=== PATIENT | female | born 1985 | race Caucasian/White ===

== ENCOUNTER 2018-12-22 07:15 | Inpatient (IN) | payer BC ==
[2018-12-22 08:12] VITALS: BMI 35.3
[2018-12-22] MEDS: CITRIC ACID/SODIUM CITRATE 30 ML UNIT-DOSE CUP PO ONE ×2 (08:30→14:00)
[2018-12-22] MEDS ORDERED: OXYTOCIN 20 UNITS in 0.9% NS 20 UNIT/1,000 ML INFUS.BAG IV ONE ×2 (09:03→09:13)
--- NOTE | 2018-12-22 09:14 | HP ---
Past Medical History - Primary Care Physician PCP:: Frankie Yu - Admission Chief Complaint: 33yo P2 with at EGA 39w 1d with prior C/S x 2 admitted for repeat C/S. 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: No: Alzheimer's, CVA, Dementia, Migraine, Multiple Sclerosis, Peripheral Neuropathy, Parkinson's, Seizure, Syncope, TIA, Vertigo, Other Cardiovascular: No: AFIB, Aneurysm, Aortic Insufficiency, Aortic Stenosis, CAD, CHF, Deep Vein Thrombosis, HTN, Hyperlipdemia, IL, Mitral Insufficiency, Mitral Stenosis, Murmur, Pulmonary Hypertension, Other Pulmonary: No: Asthma, Bronchitis, Cancer, COPD, O2 Dependent, Pneumonia, Previously Intubated, Pulmonary Embolus, Pulmonary Fibrosis, Sleep Apnea, Other Gastrointestinal: No: Ascites, Cancer, Constipation, Crohn's Disease, Diverticulitis, Diverticulosis, Esophageal Varices, Gastritis, GERD, GI Bleed, Hemorrhoids, Hiatal Hernia, Inflamatory Bowel Disease, Irritable Bowel Disease, Pancreatitis, Peptic Ulcer Disease, Ulcerative Colitis, Other Hepatobiliary: No: Cirrhosis, Cholelithiasis, Cholecystitis, Choledocholithiasis , Hepatitis A, Hepatitis B, Hepatitis C, Other Renal/: No: Renal Failure, Renal Inusuff, BPH, Cancer, Hematuria, Hemodialysis , Neurogenic Bladder, Renal Calculi, UTI, Other Reproductive: No: Ectopic , Endometriosis, Fibroids, PID, Polycystic Ovary Syndrome, Postmenopausal, Other ...: 4 ...Para: 2 (c/s x2) ...Term: 2 ...: 0 ...Spon : 1 ...Induced : 0 ...Multiple Gestation: 0 ...LMP: 03/18/18 ... Weeks Gestation by Dates: 39.1 ...EDC by Sono: 12/23/18 Heme/Onc: No: Anemia, B12 Deficiency, Bleeding Disorder, Cancer, Current Chemotherapy, Current Radiation Therapy, Hemochromatosis, Hypercoaguable State, Myeloproliferative Synd, Sickle Cell Disease, Sickle Cell Trait, Thrombocytopenia, Other Infectious Disease: No: AIDS, C-Diff, Herpes Zoster, HIV, MRSA, STD's, Tuberculosis, VREF, Other Psych: No: Addictions, Anxiety, Bipolar, Depression, Panic, Psychosis, Schizophrenia, Other Musculoskeletal: No: Bursitis, Chronic low back pain, Hemiparesis, Hemiplegia, Osteoarthritis, Paraplegia, Other Rheumatology: No: Fibromyalgia, Gout, Lupus, Rheumatoid Arthritis, Sarcoidosis, Vasculitis, Other ENT: No: Allergic Rhinitis, Sinusitis, Other Endocrine: Yes: Hyperthyroidism Dermatology: No: Basal Cell, Cellulitis, Eczema, Melanoma, Psoriasis, Squamous Cell, Other - Past Surgical History Past Surgical History: Yes: Hx Myomectomy: No Hx Transabdominal Cerclage: No - Smoking History Smoking history: Unknown if ever smoked Have you smoked in the past 12 months: No - Alcohol/Substance Use Hx Alcohol Use: No History of Substance Use: reports: None - Social History Usual Living Arrangement: Yes: With Spouse, With Child ADL: Independent History of Recent Travel: No Home Medications - Allergies Allergies/Adverse Reactions: Allergies Allergy/AdvReac Type Severity Reaction Status Date / Time No Known Drug Allergies Allergy Verified 03/05/14 09:19 - Home Medications Home Medications: Ambulatory Orders Pnv with Ca,No.71/Iron/FA [ Vitamin Tablet] 1 each PO DAILY 07/20/13 Acetaminophen [Tylenol .Regular Strength -] 650 mg PO Q4H PRN #0 tablet Ibuprofen [Motrin -] 600 mg PO Q4H PRN #0 tablet 03/08/14 Sennosides/Docusate Sodium [Pericolace -] 2 each PO HS #0 tablet 03/08/14 Docusate Sodium [Colace -] 100 mg PO BID PRN #14 capsule 05/05/16 Ibuprofen [Motrin -] 600 mg PO QID #60 tablet 05/05/16 Oxycodone HCl/Acetaminophen [Percocet 5-325 mg Tablet -] 1 - 2 tab PO Q6H #30 tab MDD 6 05/05/16 Family Disease History - Family Disease History Family Disease History: Diabetes: Father Review of Systems - Review of Systems Constitutional: reports: No Symptoms Eyes: reports: No Symptoms HENT: reports: No Symptoms Neck: reports: No Symptoms Cardiovascular: reports: No Symptoms Respiratory: reports: No Symptoms Gastrointestinal: reports: No Symptoms Genitourinary: reports: No Symptoms Breasts: reports: No Symptoms Reported Musculoskeletal: reports: No Symptoms Integumentary: reports: No Symptoms Neurological: reports: No Symptoms Endocrine: reports: No Symptoms Hematology/Lymphatic: reports: No Symptoms Psychiatric: reports: No Symptoms Pain Intensity: 0 Physical Exam - Maternity Vital Signs: Vital Signs Temperature 97.7 F 12/22/18 07:15 Pulse Rate 87 12/22/18 07:15 Respiratory Rate 20 12/22/18 07:15 Blood Pressure 119/75 12/22/18 07:15 O2 Sat by Pulse Oximetry (%) Constitutional: Yes: Well Nourished, No Distress, Calm Eyes: Yes: WNL, Conjunctiva Clear HENT: Yes: WNL, Atraumatic, Normocephalic Neck: Yes: WNL, Supple, Trachea Midline Cardiovascular: Yes: WNL, Regular Rate and Rhythm Lungs: Clear to auscultation, Normal air movement Breast(s): Yes: WNL - Abdominal Exam/OB Fundal Height: 39 Number of Fetuses: Single Presentation: Vertex Contractions: No Monitor Mode: External Heart Rate (range): 125 Heart Rate Location: Midline Category: I Accelerations: Uniform Decelerations: None - Vaginal Exam/OB Vaginal Bleediing: No Speculum Exam: No Dilatation (cm): 0 Effacement (%): 0 Amniotic Membrane Status: Intact Presentation: Vertex/Position Station: -4 - Physical Exam Musculoskeletal: Yes: WNL Extremities: Yes: WNL Edema: No Integumentary: Yes: WNL Deep Tendon Reflex Grade: Normal +2 ...Motor Strength: WNL Psychiatric: Yes: WNL, Alert, Oriented Hemorrhage Risk Assessment - Risk Factors Medium Risk Factors: Yes: None High Risk Factors: Yes: None Risk Score: 1 Risk Level: Medium Risk Imaging - Results Ultrasound: Report Reviewed Assessment/Plan 33yo P2 with at EGA 39w 1d with prior C/S x 2 admitted for repeat C/ S. We discussed the risks and benefits of C/S at length, including but not limited to scarring, pain, bleeding, infection, injury to underlying organs and structures, need for additional surgery to repair/treat any problems or complications, complications/injuries, etc. The pt verbalized her understanding and requested to proceed with surgery. The pt is aware that all surgeries have risks and no guarantees can be provided.
[2018-12-22] MEDS ORDERED: ELECTROLYTE-148 SOLN 1,000 ML IV SCH (09:15)
[2018-12-22] MEDS ORDERED: morphine SULFATE/Preservative Free 0.5 MG/ML (1cc Syringe) ONE (09:15)
[2018-12-22] MEDS ORDERED: ceFAZolin SODIUM 1 GM VIAL ONE (09:34)
[2018-12-22] MEDS ORDERED: OXYTOCIN 10 UNITS/ML VIAL ONE (09:54)
[2018-12-22] MEDS ORDERED: BENZOCAINE 28 GM HEMORRHOIDAL OINTMENT TP PRN (10:41)
[2018-12-22] MEDS ORDERED: BENZOCAINE 20% 57 GM BOTTLE TP PRN (10:41)
[2018-12-22] MEDS ORDERED: SENNOSIDES/DOCUSATE COMBO (SENNA PLUS) TABLET (UD) PO PRN (10:41)
[2018-12-22] MEDS ORDERED: oxyCODONE HCL 5 MG TABLET PO PRN (10:41)
[2018-12-22] MEDS ORDERED: WITCH HAZEL 50% (TUCKS) 40 PAD/JAR PAD TP PRN (10:41)
[2018-12-22] MEDS ORDERED: METHYLERGONOVINE MALEATE 0.2 MG/1 ML AMP IM PRN ×2 (10:41→11:19)
[2018-12-22] MEDS ORDERED: OXYTOCIN 20 UNITS in 0.9% NS 20 UNIT/1,000 ML INFUS.BAG IV SCH (10:45)
[2018-12-22] MEDS ORDERED: SIMETHICONE 80 MG TAB.CHEW (FP) PO PRN (11:19)
[2018-12-22] MEDS ORDERED: IBUPROFEN 600 MG TABLET (FP) PO PRN (11:19)
--- NOTE | 2018-12-22 11:42 | OP ---
Operative Note - Note: Operative Date: 12/22/18 Pre-Operative Diagnosis: at EGA 39w1d, prior C/S x 2 Operation: Repeat LT C/S Findings: Live baby girl in vtx presentation, no meconium in amniotic fluid, 9/9, normal uterus/tubes/ovaries Post-Operative Diagnosis: Same as Pre-op Surgeon: Frankie Yu Peach Grower: Angie Benavidez Anesthesiologist/AUTOMATIC PAD MAKING MACHINE OPERATOR: Marion Nash Anesthesia: Spinal Specimens Removed: Placenta Estimated Blood Loss (mls): 600 Drains & Tubes with Location: Ovalle cath Drains, Volume Out (mls): 200 Blood Volume Replaced (mls): 0 Fluid Volume Replaced (mls): 1,000 Operative Report Dictated: Yes
--- NOTE | 2018-12-22 11:49 | PN ---
Delivery - Delivery Section: Repeat, Low Flap Transverse Type of Anesthesia: Spinal Episiotomy/Laceration: None EBL (cc): 600 Delivery, Single - Stages of Labor Date of Delivery: 12/22/18 Time of Delivery: 10:05 Date Placenta Delivered: 12/22/18 Time Placenta Delivered: 10:07 Placenta: Yes: Manual Removal, Normal Configuration - Condition of Laundry Equipment Operator/Media Job Titles Present: Yes Name: Pearl Mccray Infant Gender: Female Weight: 4.167 kg Position: Right, OT Total Hours ROM (Hrs/Mins): 7 MINS - 1 Minute Total Score: 9 5 Minutes Total Score: 9 - [place] Feeding Plan Initial Plan: Elected not to breastfeed exclusively throughout hospitalization
[2018-12-22] MEDS ORDERED: ONDANSETRON 4 MG/2 ML VIAL IVPUSH PRN (12:28)
[2018-12-22] MEDS: IBUPROFEN 800 MG/8 ML IJ IVPB PRN ×2 (12:56→23:23)
[2018-12-22] MEDS ORDERED: TUBERCULIN PPD 5 TU/0.1ML SYRINGE (IN PATIENT USE ONLY) ID ONE (14:00)
[2018-12-22] MEDS: ACETAMINOPHEN 325 MG TABLET (FP) PO PRN (18:25)
--- NOTE | 2018-12-22 21:15 | OP ---
DATE OF OPERATION: 12/22/2018 PREOPERATIVE DIAGNOSIS: at estimated gestational age of 39 weeks and 1 day, previous section x2. POSTOPERATIVE DIAGNOSIS: at estimated gestational age of 39 weeks and 1 day, previous section x2, delivered. PROCEDURE: Repeat low transverse section via Pfannenstiel skin incision. SURGEON: Frankie Yu MD POLYMER CHEMIST: Angie Benavdiez MD ANESTHESIOLOGIST: Marion Nash DO ANESTHESIA: Spinal. COMPLICATIONS: None. ESTIMATED BLOOD LOSS: 600 mL. INTRAVENOUS FLUIDS: 1000 mL. URINE OUTPUT: Clear urine 200 mL at the end of the procedure. PATHOLOGY: Placenta. FINDINGS: Live baby girl in vertex presentation. No meconium in amniotic fluid. Apgars 9 and 9. Normal uterus, fallopian tubes, and ovaries. PROCEDURE DESCRIPTION: Patient was met preoperatively. Risks, benefits, and alternatives of surgery were discussed in details. All questions were answered. The consent form was reviewed and signed. The patient verbalized her understanding and requested to proceed with surgery. The patient was then brought to the OR with the IV running. She was placed on the surgical table in the sitting position. The spinal anesthesia was achieved without difficulty. The patient was then placed in a supine position with a leftward tilt. A Ovalle catheter was inserted and left to drain to gravity. The patient was then prepped and draped in the usual sterile fashion. A timeout procedure was conducted as per standard protocol. The surgeons then proceeded with the operation. A Pfannenstiel skin incision was made with a knife along the prior scar. The incision was taken down to the level of fascia. The fascia was incised in the midline, and the incision was extended bilaterally using Galo scissors. The fascia was dissected away from the rectus muscles superiorly and inferiorly using sharp dissection. The rectus muscles were in the midline. The peritoneum was identified and entered sharply. The peritoneal incision was extended superiorly and inferiorly with Metzenbaum scissors. The bladder peritoneum was incised transversely over the lower uterine segment. The incision was extended bilaterally using Metzenbaum scissors. The bladder was then dissected away from the lower uterine segment using sharp dissection. The bladder was reflected downwards using Belfour retractor. The uterus was incised transversely in the lower uterine segment. The incision was extended bilaterally using bandage scissors. The baby was delivered from vertex presentation without complications. A vacuum assistance was required due to the baby's unengaged head. The baby delivered without complications. The baby was crying spontaneously. The umbilical cord was clamped and cut. The baby was handed to the awaiting informal waiter/waitress. The placenta was then delivered manually and without complications. The uterus was cleared of all clots and debris. The uterine incision was repaired using a 0 Biosyn suture with a running locking stitch. Good hemostasis was noted. The uterine incision was then imbricated using a 0 Biosyn suture with good hemostasis and approximation. The bladder peritoneum was then closed using a 0 Biosyn suture with good approximation and hemostasis. The operative site was irrigated using copious amounts of normal saline. Once the saline was aspirated, good hemostasis was noted. The abdominal peritoneum was closed using a 2-0 chromic suture with a running stitch. The rectus muscles were approximated using several interrupted 2-0 chromic sutures. The fascia was closed with a 0 Vicryl suture. Good hemostasis and approximation were confirmed. The subcutaneous adipose tissues and Abner fascia were also approximated using several interrupted 0 Vicryl sutures. The skin was closed using a 3-0 Vicryl stitch with a subcutaneous closure. The patient tolerated the procedure well. Sponge, lap, needle, and instrument counts were correct. The patient was transferred to recovery room in stable condition and awake. [id number]
[2018-12-22] MEDS: FERROUS SO4 325 MG TABLET (FP) PO SCH (22:55)
[2018-12-23] MEDS: IBUPROFEN 800 MG/8 ML IJ IVPB PRN (04:36)
[2018-12-23 07:16] LABS: BASO % 0.4 % (0-2.0); EOS % 1.7 % (0-4.5); HEMATOCRIT 33.3 % (32.4-45.2); HEMOGLOBIN 11.2 GM/dL (10.7-15.3); LYMPH % 13.9 % (8-40); MCH 28.8 pg (25.7-33.7); MCHC 33.7 g/dl (32.0-36.0); MEAN CELL VOLUME 85.5 fl (80-96); MEAN PLT VOLUME 8.2 fl (7.5-11.1); MONO % 9.6 % (3.8-10.2); NEUT % 74.4 % (42.8-82.8); PLATELET COUNT 183 K/MM3 (134-434); RBC 3.89 M/mm3 (3.60-5.2); RDW 14.2 % (11.6-15.6)
--- NOTE | 2018-12-23 08:01 | PN ---
Post Progress Note - Subjective Subjective: Patient without acute complaints. Reports tolerating oral intake without nausea or vomiting. Ambulating without dizziness. Denies fevers or chills. Pain well controlled Ovalle in place, no voiding yet. No flatus yet. Post Day: 1 Type of Delivery: Repeat C/S Vital Signs: Vital Signs Temperature 98.1 F 12/23/18 04:33 Pulse Rate 56 L 12/23/18 04:33 Respiratory Rate 20 12/23/18 06:00 Blood Pressure 108/55 L 12/23/18 04:33 O2 Sat by Pulse Oximetry (%) 100 12/22/18 11:50 Breast Exam: Yes: Soft Uterus: Yes: Fundus Firm, Fundus below umbilicus Incision: Yes: Dressing dry and intact Abdomen/GI: Yes: Abdomen soft, Tender (mild incisional), Tolerating PO. No: Abdominal Distention Lochia: Yes: Serosa Lochia, amount: Small Extremities: Yes: Calves non-tender, Edema (trace) Activity: Ambulating Assessment/Plan 33 yo POD # 1 s/p R CD, afebrile, vital signs stable, doing well 1. Continue routine postoperative care. 2. AM CBC without signs of anemia 3. Rh positive status, no rhogam indicated. 4. Encourage ambulation and incentive spirometer use 5. Continue oral pain medication 6. Anticipate discharge home postoperative day #3 or #4
[2018-12-23] MEDS: ACETAMINOPHEN 325 MG TABLET (FP) PO PRN ×2 (08:52→12:50)
[2018-12-23] MEDS: oxyCODONE HCL 5 MG TABLET PO PRN ×4 (08:53→21:18)
[2018-12-23] MEDS: SIMETHICONE 80 MG TAB.CHEW (FP) PO PRN ×3 (08:54→16:54)
--- NOTE | 2018-12-23 09:40 | PN ---
Progress Note (short form) - Note Progress Note: POD s/p c/s with spinal duramorph. Itching controlled with benadryl, pain minimal. No anesthetic issues
[2018-12-23] MEDS: FERROUS SO4 325 MG TABLET (FP) PO SCH ×2 (10:00→21:17)
[2018-12-23] MEDS: PRENATAL VITAMINS W/ FOLIC ACID TABLET (FP) PO SCH (10:00)
[2018-12-23] MEDS ORDERED: DIPHTH,PERTUSS(ACELL),TET 0.5 ML DISP.SYRIN IM ONE (10:00)
[2018-12-23] MEDS ORDERED: BISACODYL 10 MG SUPP.RECT RC PRN ×2 (10:41→11:20)
[2018-12-23] MEDS: ENOXAPARIN NA (PORCINE) 40 MG/0.4 ML DISP.SYRIN SQ SCH (10:58)
[2018-12-23] MEDS: IBUPROFEN 600 MG TABLET (FP) PO PRN ×2 (16:54→21:19)
[2018-12-24] MEDS: SIMETHICONE 80 MG TAB.CHEW (FP) PO PRN ×5 (03:02→20:37)
[2018-12-24] MEDS: IBUPROFEN 600 MG TABLET (FP) PO PRN ×5 (03:02→20:38)
[2018-12-24] MEDS: oxyCODONE HCL 5 MG TABLET PO PRN ×5 (03:02→20:40)
[2018-12-24] MEDS: FERROUS SO4 325 MG TABLET (FP) PO SCH ×2 (10:53→22:54)
[2018-12-24] MEDS: PRENATAL VITAMINS W/ FOLIC ACID TABLET (FP) PO SCH (10:54)
[2018-12-24] MEDS: ENOXAPARIN NA (PORCINE) 40 MG/0.4 ML DISP.SYRIN SQ SCH (10:56)
--- NOTE | 2018-12-24 17:12 | PN ---
Post Progress Note - Subjective Subjective: Patient without acute complaints. Reports tolerating oral intake without nausea or vomiting. Ambulating without dizziness. Denies fevers or chills. Pain well controlled with oral pain medication. Pumping without issue, baby not latching yet. Passing flatus. Post Day: 2 Type of Delivery: Repeat C/S Vital Signs: Vital Signs Temperature 97.6 F 12/24/18 10:00 Pulse Rate 72 12/24/18 10:00 Respiratory Rate 20 12/24/18 10:00 Blood Pressure 124/67 12/24/18 10:00 O2 Sat by Pulse Oximetry (%) 100 12/24/18 09:00 Breast Exam: Yes: Soft Uterus: Yes: Fundus Firm, Fundus below umbilicus, Non-tender Incision: Yes: Sutures intact Abdomen/GI: Yes: Abdomen soft, Passing flatus, Tolerating PO Lochia: Yes: Rubra Lochia, amount: Small Extremities: Yes: Calves non-tender Perineum: Yes: Intact Activity: Ambulating - Labs Labs: CBC WBC 8.0 K/mm3 (4.0-10.0) 12/23/18 06:53 RBC 3.89 M/mm3 (3.60-5.2) 12/23/18 06:53 Hgb 11.2 GM/dL (10.7-15.3) 12/23/18 06:53 Hct 33.3 % (32.4-45.2) 12/23/18 06:53 MCV 85.5 fl (80-96) 12/23/18 06:53 MCH 28.8 pg (25.7-33.7) 12/23/18 06:53 MCHC 33.7 g/dl (32.0-36.0) 12/23/18 06:53 RDW 14.2 % (11.6-15.6) 12/23/18 06:53 Plt Count 183 K/MM3 (134-434) D 12/23/18 06:53 MPV 8.2 fl (7.5-11.1) 12/23/18 06:53 Absolute Neuts (auto) 5.9 K/mm3 (1.5-8.0) 12/23/18 06:53 Neutrophils % 74.4 % (42.8-82.8) 12/23/18 06:53 Lymphocytes % 13.9 % (8-40) D 12/23/18 06:53 Monocytes % 9.6 % (3.8-10.2) 12/23/18 06:53 Eosinophils % 1.7 % (0-4.5) 12/23/18 06:53 Basophils % 0.4 % (0-2.0) 12/23/18 06:53 Nucleated RBC % 0 % (0-0) 12/23/18 06:53 Assessment/Plan 33yo P3 s/p repeat LT C/S, doing well stable, afebrile. The pt is asymptomatic for s/sxs of anemia. care instructions reviewed. Continue routine postop care. Ambulation encouraged.
--- NOTE | 2018-12-24 17:32 | DS ---
Physical Exam-ER MANAGER Vital Signs: Vital Signs Temperature 97.6 F 12/24/18 10:00 Pulse Rate 72 12/24/18 10:00 Respiratory Rate 20 12/24/18 10:00 Blood Pressure 124/67 12/24/18 10:00 O2 Sat by Pulse Oximetry (%) 100 12/24/18 09:00 Constitutional: Yes: Well Nourished, No Distress, Calm Eyes: Yes: WNL, Conjunctiva Clear HENT: Yes: WNL, Atraumatic, Normocephalic Neck: Yes: WNL, Supple, Trachea Midline Cardiovascular: Yes: WNL, Regular Rate and Rhythm Respiratory: Yes: WNL, Regular, CTA Bilaterally Gastrointestinal: Yes: WNL, Normal Bowel Sounds, Soft ...Rectal Exam: Yes: Deferred Renal/: Yes: WNL ....Post : Yes: Uterus firm, Uterus non-tender Breast(s): Yes: WNL Musculoskeletal: Yes: WNL Extremities: Yes: WNL Edema: No Integumentary: Yes: WNL Wound/Incision: Yes: Clean/Dry, Well Approximated, Sutures Intact, Steri Strips , Open to air Neurological: Yes: WNL, Alert, Oriented ...Motor Strength: WNL Psychiatric: Yes: WNL, Alert, Oriented Labs: CBC, BMP 12/23/18 06:53 Delivery - Delivery Section: Repeat, Low Flap Transverse Type of Anesthesia: Spinal Episiotomy/Laceration: None EBL (cc): 600 Delivery, Single - Stages of Labor Date of Delivery: 12/22/18 Time of Delivery: 10:05 Time Placenta Delivered: 10:07 Placenta: Yes: Manual Removal, Normal Configuration - Condition of Slots Manager/Acquisition Lead Present: Yes Name: Pearl Mccray Infant Gender: Female Weight: 4.167 kg Position: Right, OT Total Hours ROM (Hrs/Mins): 7 MINS - 1 Minute Total Score: 9 5 Minutes Total Score: 9 - Feeding Plan Initial Plan: Elected not to breastfeed exclusively throughout hospitalization Discharge Summary Reason For Visit: SCHEDULED C SECTION at EGA 39wk, prior C/S Procedures: Principal: Repeat LT C/S Hospital Course: Normal recovery Condition: Good - Instructions Diet, Activity, Other Instructions: Physical activity Resume your normal everyday activity as tolerated no heavy lifting or exercise until seen by your surgeon. You may walk unlimited missy of and climb stairs. You may resume driving the car when you feel safe and comfortable behind the wheel. No sexual activity as instructed. Wound care If you have a bandage, leave it on, and keep dry for 48-72 hours. After that time discard the outer bandage. If they are tapes on the skin under the out of bandage leave them in place. They will peel off in the next 7 to 10 days. Do Not Peel them off. You may shower the day after surgery. If there are tapes present on the skin, you may shower over them. Diet There are no dietary restrictions. Eat healthy, high-fiber foods. Drink 6 to 8 glasses of liquid each day. This will assist in keeping your bowels are regular. Pain management You may take Tylenol or acetaminophen or Ibuprofen (for example, Motrin, Advil etc.) from my pain prescription medication is ordered should be taken as prescribed for moderate to severe pain. Call MD for any of the following: Severe pain not relieved by medication Fever of 101 or higher Excessive bleeding or drainage on dressing Inability to urinate Referrals: Frankie Yu MD [Staff Physician] - Disposition: HOME - Home Medications Comprehensive Discharge Medication List: Ambulatory Orders Pnv with Ca,No.71/Iron/FA [ Vitamin Tablet] 1 each PO DAILY 07/20/13 Acetaminophen [Tylenol .Regular Strength -] 650 mg PO Q4H PRN #0 tablet Ibuprofen [Motrin -] 600 mg PO Q4H PRN #0 tablet 03/08/14 Sennosides/Docusate Sodium [Pericolace -] 2 each PO HS #0 tablet 03/08/14 Docusate Sodium [Colace -] 100 mg PO BID PRN #14 capsule 05/05/16 Ibuprofen [Motrin -] 600 mg PO QID #60 tablet 05/05/16 Oxycodone HCl/Acetaminophen [Percocet 5-325 mg Tablet -] 1 - 2 tab PO Q6H #30 tab MDD 6 05/05/16
[2018-12-25] MEDS: oxyCODONE HCL 5 MG TABLET PO PRN ×2 (02:34→06:49)
[2018-12-25] MEDS: SIMETHICONE 80 MG TAB.CHEW (FP) PO PRN ×3 (02:34→11:58)
[2018-12-25] MEDS: IBUPROFEN 600 MG TABLET (FP) PO PRN ×3 (02:35→11:57)
[2018-12-25 06:02] VITALS: PULSE 60
[2018-12-25 07:26] LABS: BASO % 0.7 % (0-2.0); EOS % 4.6 % (0-4.5); HEMATOCRIT 31.5 % (32.4-45.2); HEMOGLOBIN 10.1 GM/dL (10.7-15.3); LYMPH % 31.7 % (8-40); MCH 27.4 pg (25.7-33.7); MEAN CELL VOLUME 85.8 fl (80-96); MEAN PLT VOLUME 8.2 fl (7.5-11.1); MONO % 9.1 % (3.8-10.2); NEUT % 53.9 % (42.8-82.8); PLATELET COUNT 241 K/MM3 (134-434); RBC 3.67 M/mm3 (3.60-5.2); RDW 14.3 % (11.6-15.6)
--- NOTE | 2018-12-25 08:02 | PN ---
Post Progress Note - Subjective Subjective: Patient reports left lower extremity swelling and pain. Worse when walking and flexing of foot. Reports tolerating oral intake without nausea or vomiting. Ambulating without dizziness. Denies fevers or chills. Pain well controlled with oral pain medication. Passing flatus. Post Day: 3 Type of Delivery: Repeat C/S Vital Signs: Vital Signs Temperature 97.6 F 12/24/18 22:00 Pulse Rate 60 12/24/18 22:00 Respiratory Rate 18 12/24/18 22:00 Blood Pressure 103/50 L 12/24/18 22:00 O2 Sat by Pulse Oximetry (%) 98 12/24/18 21:00 Breast Exam: Yes: Soft Uterus: Yes: Fundus Firm, Fundus below umbilicus Incision: Yes: Sutures intact, Oozing (mild midline ). No: Redness Abdomen/GI: Yes: Abdomen soft, Tender (mild incisoinal), Passing flatus, Tolerating PO. No: Abdominal Distention Lochia: Yes: Serosa Lochia, amount: Small Extremities: Yes: Calves non-tender, Edema (L>R, + Homann's, no cords palpated) - Labs Labs: CBC WBC 5.0 K/mm3 (4.0-10.0) 12/25/18 06:30 RBC 3.67 M/mm3 (3.60-5.2) 12/25/18 06:30 Hgb 10.1 GM/dL (10.7-15.3) L 12/25/18 06:30 Hct 31.5 % (32.4-45.2) L 12/25/18 06:30 MCV 85.8 fl (80-96) 12/25/18 06:30 MCH 27.4 pg (25.7-33.7) 12/25/18 06:30 MCHC 32.0 g/dl (32.0-36.0) 12/25/18 06:30 RDW 14.3 % (11.6-15.6) 12/25/18 06:30 Plt Count 241 K/MM3 (134-434) D 12/25/18 06:30 MPV 8.2 fl (7.5-11.1) 12/25/18 06:30 Absolute Neuts (auto) 2.7 K/mm3 (1.5-8.0) 12/25/18 06:30 Neutrophils % 53.9 % (42.8-82.8) D 12/25/18 06:30 Lymphocytes % 31.7 % (8-40) D 12/25/18 06:30 Monocytes % 9.1 % (3.8-10.2) 12/25/18 06:30 Eosinophils % 4.6 % (0-4.5) H D 12/25/18 06:30 Basophils % 0.7 % (0-2.0) 12/25/18 06:30 Nucleated RBC % 0 % (0-0) 12/25/18 06:30 Assessment/Plan 33 yo POD # 3 s/p R CD, afebrile, vital signs stable, doing well 1. LLE swelling, pain - will f/u LE doppler to RO DVT Patient denies SOB, pain 2. Continue routine care 3. If LE Doppler WNL, may consider DC home today
[2018-12-25 09:55] VITALS: BP 113/78; TEMP 97
[2018-12-25] MEDS: ENOXAPARIN NA (PORCINE) 40 MG/0.4 ML DISP.SYRIN SQ SCH (11:49)
[2018-12-25] MEDS: PRENATAL VITAMINS W/ FOLIC ACID TABLET (FP) PO SCH (11:50)
[2018-12-25] MEDS: FERROUS SO4 325 MG TABLET (FP) PO SCH (11:50)
[2018-12-25] MEDS: ACETAMINOPHEN 325 MG TABLET (FP) PO PRN (11:56)
--- NOTE | 2018-12-31 16:29 | PATH ---
Surgical Pathology Report Patient Name: YOHANA KNOX [facility]. Rec. #: [id number] /Age/Gender: 1985 (Age: 33) / F Account: [id number] Location: [facility] OBS/CUSTOMER ADVOCATE Taken: 12/22/2018 Received: 12/23/2018 Reported: 12/31/2018 Physicians: Frankie Yu M.D. Specimen(s) Received PLACENTA Clinical History 39.6 weeks gestation, , denies any medical history Final Diagnosis PLACENTA, SECTION: 699 G THIRD TRIMESTER PLACENTA WITH TRIVASCULAR UMBILICAL CORD AND UNREMARKABLE PLACENTAL MEMBRANES. Electronically Signed Jacinda Ibanez M.D. Gross Description The specimen is received fresh labeled placenta and is a 699 gram, 16.5 x 13.5 x 4.3 cm. placenta with attached membranes and umbilical cord. The attached membranes are vuong, translucent with focal opacities and insert marginally. The umbilical cord measures 45 cm. in length and averages 1 cm. in diameter. The cord inserts eccentrically, 2.5 cm. to the nearest margin. No true knots or strictures are identified. Cut surface of the umbilical cord reveals 3 vessels. The surface is kaminski blue with moderate fibrin deposition and appropriate caliber vessels. The maternal surface is red-brown with focal defects. Sectioning reveals red-brown, spongy parenchyma. No lesions are identified. Lead Cook sections are submitted in three cassettes as follows: 1- membrane rolls and umbilical cord; 2-3- full thickness sections of placenta. /12/30/2018 [facility]
== END 2018-12-25 14:20 | disposition home or self-care (01) | DRG 788 ==
LOC: JLDR 07:15 → J3W 12:41
PROVIDERS: ADMIT Obstetrics & Gynecology; ATTEND Obstetrics & Gynecology
PROC: 10D00Z1 Extraction of Products of Conception, Low, Open Approach (ICD-10-PCS; principal; 2018-12-22)
DX: O34.211 Maternal care for low transverse scar from previous cesarean delivery (principal); O99.824 Streptococcus B carrier state complicating childbirth; Z3A.39 39 weeks gestation of pregnancy; Z37.0 Single live birth
CPT/HCPCS: 36415; 85025; 88307-TC; 90715; 93971-TC

== ENCOUNTER 2021-01-09 04:47 | Day surgery (SDC) | payer BC ==
[2021-01-05 11:59] VITALS: BMI 30.9
[2021-01-09] MEDS ORDERED: MIDAZOLAM HCL 2 MG/2 ML SINGLE DOSE VIAL ONE (12:25)
[2021-01-09] MEDS ORDERED: ceFAZolin 2 GRAM PREMIX BAG IVPB ONE (12:35)
[2021-01-09] MEDS ORDERED: ONDANSETRON 4 MG/2 ML VIAL IVPUSH PRN ×2 (12:48→13:22)
[2021-01-09] MEDS ORDERED: oxyCODONE HCL 5 MG TABLET PO PRN (12:48)
[2021-01-09] MEDS ORDERED: KETOROLAC TROMETHAMINE 30 MG/1 ML VIAL ONE (12:58)
[2021-01-09] MEDS ORDERED: LACTATED RINGERS SOLUTION 1,000 ML IV SCH (13:00)
[2021-01-09] MEDS ORDERED: GLYCOPYRROLATE 0.2 MG/1 ML VIAL ONE (13:03)
[2021-01-09] MEDS ORDERED: ACETAMINOPHEN 500 MG TABLET (FP) PO PRN (13:22)
[2021-01-09 15:04] VITALS: BP 114/75; PULSE 56; TEMP 97.4
== END 2021-01-09 15:58 | disposition home or self-care (01) ==
LOC: JASU-SURG 04:47
PROVIDERS: ATTEND Obstetrics & Gynecology
PROC: 0UDB8ZX Extraction of Endometrium, Via Natural or Artificial Opening Endoscopic, Diagnostic (ICD-10-PCS; 2021-01-09)
PROC: 0UB98ZZ Excision of Uterus, Via Natural or Artificial Opening Endoscopic (ICD-10-PCS; principal; 2021-01-09 12:00)
DX: N92.1 Excessive and frequent menstruation with irregular cycle (principal); N84.0 Polyp of corpus uteri
CPT/HCPCS: 36415; 84703; 86850; 86900; 86901; 88305-TC; 94760